=== PATIENT | male | born 1955 | race Caucasian/White ===

== ENCOUNTER 2024-11-13 12:04 | Emergency (ER) | payer MEDICARE, OTHER, SELFPAY ==
[2024-11-13] VITALS (12 sets, daily range): BP systolic 139–157; BP diastolic 73–110; PULSE 78–88; RESP 15–26; TEMP 36.4–36.7; O2SAT 93–100
--- OUTSIDE RECORDS SUMMARY | 2024-11-13 12:07 | XMS_ITS ---
Author Organization Unknown Medications Medication Instructions Effective Dates (start - stop) Status 3 ML insulin degludec 200 UN T/ML Pen Injector [Tresiba] - Completed insulin detemir 100 UNT/ML Injectable Solution [Levemir] - Complet ed 60 ACTUAT fluticasone propio marcelo 0.5 MG/ACTUAT / salmeterol 0.05 MG/ACTUAT Dry Powder Inhaler [Wixela] - Completed 60 ACTUAT fluticasone propio marcelo 0.5 MG/ACTUAT / salmeterol 0.05 MG/ACTUAT Dry Powder Inhaler [Wixela] - Completed 3 ML insulin aspart, human 1 00 UNT/ML Pen Injector [NovoLog] - Complet ed - - Compl eted atorvastatin 10 MG Oral Tablet 2023-08-18 T00:00:00Z - Completed 3 ML insulin degludec 200 UN T/ML Pen Injector [Tresiba] - Completed 60 ACTUAT fluticasone propio mareclo 0.5 MG/ACTUAT / salmeterol 0.05 MG/ACTUAT Dry Powder Inhaler [Wixela] - Completed 60 ACTUAT fluticasone propio marcelo 0.25 MG/ACTUAT / salmeterol 0.05 MG/ACTUAT Dry Powder Inhaler [Advair] - Completed - - Compl eted - - Compl eted insulin detemir 100 UNT/ML Injectable Solution [Levemir] - Complet ed - - Compl eted - - Compl eted 3 ML insulin degludec 200 UN T/ML Pen Injector [Tresiba] - Completed 3 ML insulin aspart, human 1 00 UNT/ML Pen Injector [NovoLog] - Complet ed atorvastatin 10 MG Oral Tablet 2023-05-18 T00:00:00Z - Completed 60 ACTUAT fluticasone propio marcelo 0.5 MG/ACTUAT / salmeterol 0.05 MG/ACTUAT Dry Powder Inhaler [Advair] - Completed atorvastatin 10 MG Oral Tablet 2024-03-25 T00:00:00Z - Completed - - Compl eted - - Compl eted - - Compl eted - - Compl eted - - Compl eted 3 ML insulin aspart, human 1 00 UNT/ML Pen Injector [NovoLog] - Complet ed 3 ML insulin aspart, human 1 00 UNT/ML Pen Injector [NovoLog] - Complet ed - - Compl eted Patient Care team information Name Category Status Period Participants - - Proposed period not known -
--- OUTSIDE RECORDS SUMMARY | 2024-11-13 12:07 | XMS_ITS | Clinical Summary ---
Author Organization [facility] Address [address] [place] [address] Phone Care Team Providers Care Clothing Man Name Role Phone Arminda Sutherland APRN, GLOBAL CREATIVE CHAIRMAN Unavailable Jorge L Botello MD Unavailable Allergies Active Allergy Reactions Criticality Noted Date Comments Promethazine Hcl Hallucinations 11/12/2010 Medications Accu-Chek Softclix Lancets XX MISCIndications: Diabetes 1.5, managed as type 1 (HCC) 1 Each by Does not apply route 3 times daily. 100 Each 3 3 Active budesonide-formo terol fumarate (SYMBICORT) 80-4.5 MCG/ACT IN AERO take 2 Puffs by inhalation 2 times daily. 3 Inhaler 3 4 Active Blood Glucose Monitoring Suppl (ONE TOUCH ULTRA MINI) W/DEVICE XX KIT by Does not apply route. 4 Active insulin lispro (HUMALOG KWIKPEN) 100 UNIT/ML SC SOLNIndications: Type II or unspecified type diabetes mellitus without mention of complication, uncontrolled 34 Units by Subcutaneous route 3 times daily (before meals). 90 day supply please. 105 mL 1 4 Active insulin glargine (LANTUS) 100 UNIT/ML SC SOLNIndications: Type II or unspecified type diabetes mellitus without mention of complication, uncontrolled 65 Units by Subcutaneous route daily. 60 mL 1 4 Active Glucose Blood (ONE TOUCH ULTRA TEST) STRPIndications: Type II or unspecified type diabetes mellitus without mention of complication, uncontrolled 1 Strip by In Vitro route 3 times daily. Use as directed 200 Each 3 4 Active INS SYRINGE/NEEDLE 1CC/28G (B-D INS SYR MICROFINE 1CC/28G) 28G X 1/2 1 ML XX MISCIndications: Type II or unspecified type diabetes mellitus without mention of complication, uncontrolled 1 Syringe by Subcutaneous route every evening. 100 Each 3 4 Active fluticasone (FLONASE) 50 MCG/ACT NA SUSPIndications: Nasal congestion 1-2 Sprays by Nasal route daily. Use in each nostril as directed. 3 Bottle 1 4 Active Active Problems Problem Noted Date Diagnosed Date Type 1 diabetes 11/14/2013 Diabetes mellitus 04/18/2013 Overview (02/21/2014): Diabetic Eye exam: 03/29/13 Dr. Audrey Awad recall 1 year. Last Foot Exam 11/14/13 Arminda Sutherland APN Frozen shoulder 11/19/2012 Resolved Problems Problem Noted Date Diagnosed Date Resolved Date Diabetes mellitus 12/09/2010 11/11/2011 Immunizations Immunization Administration Dates Next Due Covid-19, Mrna, Lnp-s, Pf, 3 0 Mcg/0.3 Ml Dose ([email or web address]) 12/18/2020,11/21/2020 Hepatitis B Vaccine 08/07/2007,03/05/2007,2006 Influenza Vaccine less than 3 yrs 08/07/2007 PNEUMONIA ADULT IM [id number] 02/05/2014 PUR FLU PRES FREE AGE 3+ FULL IM 06/10/2013 PUR HEP A ADULT IM 11/11/2011 TDAP Vaccine 02/01/2007 Family History Medical History Relation Name Comments Stroke Father Diabetes Mother High Cholesterol Mother Hypertension Mother Relation Name Status Comments Father Alive Mother Alive Social History Tobacco Use Types Packs/Day Years Used Date Smoking Tobacco: Never Smokeless Tobacco: Never Tobacco Cessation:Counseling Given: Yes Alcohol Use Standard Drinks/Week Comments No 0 (1 standard drink = 0.6 oz pur e alcohol) Sex and Gender Information Value Date Recorded Sex Assigned at Not on file Legal Sex Male 3:48 AM DINING CAR STEWARD Gender Identity Not on file Sexual Orientation Not on file Last Filed Vital Signs Vital Sign Reading Time Taken Comments Blood Pressure 132/82 02/05/2014 7:38 AM CDT Pulse 80 02/05/2014 7:38 AM CDT Temperature 36.3 C (97.4 F) 02/05/2014 7:38 AM CDT Respiratory Rate 18 02/05/2014 7:38 AM CDT Oxygen Saturation 99% 11/12/2010 10:46 AM DINING CAR STEWARD Inhaled Oxygen Concentration - - Weight 76.8 kg (169 lb 6.4 oz) 02/05/2014 7:38 A M CDT Height 172.7 cm (5' 8 ) 02/05/2014 7:38 AM CDT Body Mass Index 25.76 02/05/2014 7:38 AM CDT Plan of Treatment Health Maintenance Due Date Last Done Comments Diabetes: Foot Exam 1955 Hepatitis C Virus (HCV) Screening 1955 Colonoscopy 2000 Colorectal Cancer Screening 2000 Cologuard 2005 Immunochemical Fecal Occult Blood 2005 PSA Discussion 2010 Diabetes: Eye Exam 03/29/2014 03/29/2013 Diabetes: Hemoglobin A1c 08/08/2014 014, 10/10/2013, 06/11/2013, Additional history exists Diabetes: Nephropathy Screening 10/10/2014 10/10/2013, 02/01/2013, 02/01/2013, Additional history exists Pneumococcal Immunization (50+ years) (2 of 2 - PCV) 02/05/2015 02/05/2014 Respiratory Syncytial Virus (RSV) Immunization (Adult) (1 - Risk 60-74 years 1-dose series) 2015 Influenza Immunization (#1) 2024 06/10/2013, 1 10/07/2006 SARS-COV-2 Immunization ( season) 2024 01/03/2022, 07/02/2021, 12/18/2020, Additional history exists Hepatitis B Immunization Completed 007, 03/05/2007, 02/01/2007 Pneumococcal Immunization Combined Discontinued 02/05/2014 DTaP/Tdap/Td Immunization Discontinued 11/24/2017, 06/2007 Zoster Immunization Completed 07/28/2020, 0 Meningococcal Immunization (ACWY) Aged Out No longer eligible based on patient's age to complete this topic Rotavirus Immunization Aged Out No lo nger eligible based on patient's age to complete this topic Procedures Procedure Name Priority Date/Time Associated Diagnosis Comments HEMOGLOBIN A1C W/ ESTIMATED GLUCOSE Routine 02/05/2014 8:57 AM CDT Type 1 diabetes (HCC) CMP (COMPREHENSIVE METABOLIC PANEL) Routine 10/10/2013 8:12 AM DINING CAR STEWARD Type 1 diabetes mellitus (HCC) HM DILATED EYE EXAM Routine 03/29/2013 from Last 3 Months or Most Recently Relevant to Health Maintenance Results * (ABNORMAL) HEMOGLOBIN A1C W/ ESTIMATED GLUCOSE (02/05/2014 8:57 AM CDT) HGB-A1C 7.4(H) 4.0 - 6.0 % 02/05/2014 5:57 PM CDT [facility] Est Average Glucose 165.7 mg/dL 02/05/2014 5:57 PM CDT [facility] Blood specimen (specimen) Venipuncture / Unknown 02/05/2014 8:57 AM CDT 02/05/2014 9:00 AM CDT us Arminda Sutherland APRN, GLOBAL CREATIVE CHAIRMAN CHEMISTRY ORDERABLES Final Result Performing Organization Address City/State/[facility] Co de Phone Number [facility] [address] [place] [address] * (ABNORMAL) COMPREHENSIVE METABOLIC PANEL (CMP) (10/10/2013 8:12 AM DINING CAR STEWARD) SODIUM 142 137 - 145 mmol/L 10/10/2013 10:14 AM DINING CAR STEWARD [facility] POTASSIUM 4.8 3.5 - 5.1 mmol/L 10/10/2013 10:14 AM DINING CAR STEWARD [facility] CHLORIDE 102 98 - 107 mmol/L 10/10/2013 10:14 AM DINING CAR STEWARD [facility] CO2, VENOUS 27 22 - 30 mmol/L 10/10/2013 10:14 AM DINING CAR STEWARD [facility] ANION GAP 13.0 <18.0 mmol/L 10/10/2013 10:14 AM [facility] GLUCOSE 123(H) 70 - 99 mg/dL 10/10/2013 10:14 AM [facility] BUN 14 9 - 20 mg/dL 10/10/2013 10:14 AM [facility] CREATININE, BLOOD 0.78 0.70 - 1.30 mg/dL 10/10/2013 10:14 AM [facility] BUN/CREATININE RATIO 18 12 - 20 ratio 10/10/2013 10:14 AM [facility] TOTAL PROTEIN 7.2 6.3 - 8.2 g/dL 10/10/2013 10:14 AM [facility] ALBUMIN 4.3 3.5 - 5.0 g/dL 10/10/2013 10:14 AM [facility] A/G RATIO 1.5 1.0 - 2.2 10/10/2013 10:14 AM [facility] CALCIUM 9.7 8.4 - 10.2 mg/dL 10/10/2013 10:14 AM [facility] T BILI 0.6 0.2 - 1.3 mg/dL 10/10/2013 10:14 AM [facility] SGOT (AST) 19 17 - 59 U/L 10/10/2013 10:14 AM [facility] SGPT (ALT) 26 21 - 72 U/L 10/10/2013 10:14 AM [facility] ALKALINE PHOSPHATASE 95 38 - 126 U/L 10/10/2013 10:14 AM [facility] GFR, EST. NONAFRICAN >60 >=60 10/10/2013 10:14 AM [facility] GFR, EST. >60 >=60 10/10/2013 10:14 AM [facility] Comment: Creatinine Clearance is the preferred criteria for selecting drug dose adjustments in renally impaired patients. The GFR is provided as additional pertinent clinical information. GFR is reported in mL/min/1.73 sq m. Blood specimen (specimen) Venipuncture / Unknown 10/10/2013 8:12 AM DINING CAR STEWARD 10/10/2013 8:12 AM DINING CAR STEWARD us Naga Elliott MD CHEMISTRY ORDERABLES Final Re sult [facility] [address] [place] [address] * HM DILATED EYE EXAM (03/29/2013) us Isela Alarcon MD PROCEDURE/MINOR SURGICAL O RDERABLES Final Result from Last 3 Months or Most Recently Relevant to Health Maintenance Insurance [facility] Care Teams Clothing Man Relationship Specialty Start Date End Date Arminda Sutherland, HEDGE FUND PRINCIPAL, GLOBAL CREATIVE CHAIRMAN [address], [place] [id number] Nurse Practitioner Endocrinology 07/19/13 Jorge L Botello MD [address] [place] [address] Consulting Physician Endocrinology 07/19/13
--- OUTSIDE RECORDS SUMMARY | 2024-11-13 12:07 | XMS_ITS | Continuity of Care Document ---
Author Organization [facility], [facility] Address [address] [place] [address] Phone Care Team Providers Care Bee Farmer Name Role Phone Gerson Awad MD Unavailable Unavailable Allergies, Adverse Reactions, Alerts Substance Reaction Status Criticality No Known Drug Allergies Active No I nformation Medications Medication Instructions Dosage Effective Dates (start - stop) Status Comments HUMALOG (unknown strength) Not Available - Active LANTUS (unknown strength) Not Available - Active Procedures Procedure Date EYE EXAM ESTABLISHED PATIENT, MEDICAL Ju REFRACTION UPDATE EYE EXAM, NEW PATIENT MEDICAL 0 REFRACTION UPDATE Advance Directives Directive Yes / No Effective Date File Name No Information Encounters Encounter Description Practice Location Reason(s) For Visit Diagnoses Date Provider Providers Copied on Encounter [facility], [facility], [address] [place] [address], [id number] , [place] tel: [phone] [facility] Diabetes Examination (chief complaint)no problems with V/A and no complaints (chief complaint) Diabetes Mellitus Type 2, UncomplicatedSenile nuclear sclerosis 3 Ritesh [address]. [address] [place] [address], [id number] , [place]. tel: [phone] Other Provider: Naga Elliott, [address] [facility] [address], [place], [address]. tel:[phone] [facility], [facility], [address] [place] [address], [id number] , tel: [phone] [facility] No Information 201 [address] Ritesh Nieto. [address] [place], [place], [id number] , . tel: [phone] Family History Family Member Type Diagnosis Age At Onset Problem (finding) No Family history of Re spiratory Disease Father Problem (finding) cataract Problem (finding) No Family history of Re tinal Disorders Mother Problem (finding) diabetes melli tus in first degree relative Problem (finding) No Family history of As thma Mother Problem (finding) HBP Grandparents Problem (finding) Heart Disease Problem (finding) No Family history of Gl aucoma Grandparents Problem (finding) stroke Mother Problem (finding) Arthritis Problem (finding) No Family history of St rabismus Problem (finding) No Family hist ory of Macular Degeneration Payers Payer name Insurance type Covered democrat ID Authorfady cleosanford(s) [facility]ly [facility], [facility] 7141 [id number] Social History Type Description Quantity Date Captured Comments Alcohol Use Details Unknown Caffeine Use Details Unknown Tobacco Use Status No Information Smoking Status Never smoker Non-Smoking Tobacco Use Details : No Details Available : No Details Available Sex Male Chief Complaint And Reason For Visit From encounter dated '03/29/2013 15:15'. Diabetes Examination (chief complaint) no problems with V/A and no complaints (chief complaint) Reason For Referral Reason For Referral No Information History Of Present Illness Encounter Date Complaint History Of Prese nt Illness No Information Functional Status Date Functional Assessmen t No Information Instructions Date Instruction Additional Infor angelia - Return in 1 year with RML for Ref T & D. Related to Diabetic Monitor Diabetic Monitor OU. Condition: will continue to monitor. Cataract OU. Condition: established, worsening. - No signs of diabetes in the eyes. Cataracts are progressing OU but can correct with gls rx update. Eventually will need sg, but not until v/a is affected. Return in one year for f/u, TCI if problems. Related to Diabetic Monitor Assessments Type Assessment Date No Information Patient Care Teams Name Effective Dates (start - stop) Status Members No Information
[2024-11-13 12:11] LABS: Glucose Point of Care 103 mg/dl (65-105)
[2024-11-13 12:28] LABS: Basophils Absolute Auto 0.1 K/mm3 (0.0-0.1); Eosinophils Absolute Auto 0.1 K/mm3 (0-0.3); Eosinophils Percent Auto 1.4 % (0-4.4); Hematocrit 50.6 % (42.0-52.0); Immature Granulocyte Absolute 0.11 K/mm3 (0.00-0.031); Immature Granulocyte Percent A 1.1 % (0-0.5); Lymphocytes Absolute Auto 1.27 K/mm3 (0.9-3.2); Lymphocytes Percent Auto 12.7 % (18.3-44.2); Mean Corpuscular HGB Conc 33.6 g/dl (32-36); Mean Corpuscular Hemoglobin 30.6 pg (26-34); Mean Corpuscular Volume 91.2 fl (80-100); Mean Platelet Volume 9.2 fl (7.4-10.4); Monocytes Absolute Auto 0.8 K/mm3 (0.1-0.6); Monocytes Percent Auto 8.3 % (2.6-8.5); Neutrophils Absolute Auto 7.6 K/mm3 (1.3-6.7); Neutrophils Percent Auto 75.5 % (45.5-73.1); Platelet Count Result 257 k/mm3 (150-375); Red Blood Count 5.55 M/mm3 (4.6-6.20); Red Cell Distribution Width 12.6 % (11.5-14.5)
[2024-11-13 12:41] LABS: Alanine Aminotransferase 30 U/L (6-50); Albumin Level 4.6 g/dL (3.5-5.1); Alkaline Phosphatase 92 U/L (38-126); Anion Gap 11 mmol/L (4-12); Aspartate Amino Transferase 31 U/L (17-59); Bilirubin,Total 1.1 mg/dL (0.2-1.3); Blood Urea Nitrogen 12 mg/dL (9-20); Calcium 9.5 mg/dL (8.4-10.2); Carbon Dioxide 27 mmol/L (22-30); Chloride 100 mmol/L (98-107); Estimated CRCL calculation 69 ml/min; Estimated Glomerular Filt Rate > 60; Glucose 103 mg/dL (65-110); Lipase 53 U/L (23-300); Potassium 3.8 mmol/L (3.4-5.0); Sodium 138 mmol/L (137-145)
[2024-11-13] MEDS: ONDANSETRON INJ 4 MG/2 ML VIAL IV PUSH (12:58)
[2024-11-13] MEDS: SODIUM CHLORIDE 0.9% IV 1,000 ML 999 ML IV CONT (12:58)
--- OUTSIDE RECORDS SUMMARY | 2024-11-13 12:58 | XMS_ITS | Continuity of Care Document ---
Author Organization [facility], [place] Address [address] [place] [address] Phone Care Team Providers Care Farm Mortgage Agent Name Role Phone Gerson Awad MD Unavailable Unavailable Allergies, Adverse Reactions, Alerts Substance Reaction Status Criticality No Known Drug Allergies Active No I nformation Medications Medication Instructions Dosage Effective Dates (start - stop) Status Comments LANTUS (unknown strength) Not Available - Active HUMALOG (unknown strength) Not Available - Active Procedures Procedure Date EYE EXAM ESTABLISHED PATIENT, MEDICAL Ju REFRACTION UPDATE EYE EXAM, NEW PATIENT MEDICAL 0 REFRACTION UPDATE Advance Directives Directive Yes / No Effective Date File Name No Information Encounters Encounter Description Practice Location Reason(s) For Visit Diagnoses Date Provider Providers Copied on Encounter [facility], [facility], [address] [place] [address], [id number] , [place] tel: [phone] [facility] Diabetes Examination (chief complaint)no problems with V/A and no complaints (chief complaint) Diabetes Mellitus Type 2, UncomplicatedSenile nuclear sclerosis 3 Ritesh [address]o. [address] [place] [address], [id number] , [place]. tel: [phone] Other Provider: Naga Elliott, [address] [facility] [address], [place], [address]. tel:[phone] [facility] Eye [facility], [facility], [address] [place] [address], [id number] , tel: [phone] [facility] No Information 201 0 Ritesh Nieto. [address] [place], [place], [id number] , . tel: [phone] Family History Family Member Type Diagnosis Age At Onset Problem (finding) No Family hist ory of Macular Degeneration Problem (finding) No Family history of St rabismus Mother Problem (finding) Arthritis Grandparents Problem (finding) stroke Problem (finding) No Family history of Gl aucoma Grandparents Problem (finding) Heart Disease Mother Problem (finding) HBP Problem (finding) No Family history of As thma Mother Problem (finding) diabetes melli tus in first degree relative Problem (finding) No Family history of Re tinal Disorders Father Problem (finding) cataract Problem (finding) No Family history of Re spiratory Disease Payers Payer name Insurance type Covered libertarian ID Authoropal gallosanford(s) [facility] 7141 [id number] Social History Type Description Quantity Date Captured [...] No Information Instructions Date Instruction Additional Infor agnelia - Return in 1 year with RML [...]
--- OUTSIDE RECORDS SUMMARY | 2024-11-13 12:58 | XMS_ITS | Clinical Summary ---
Author Organization [facility] Address [address] [place] [address] Phone Care Team Providers Care Home Energy Consultant Name Role Phone Arminda Sutherland APRN, BUSINESS ENTERPRISE OFFICER Unavailable [phone] Jorge L Botello MD Unavailable Allergies Active [...] Lnp-s, Pf, 3 0 Mcg/0.3 Ml Dose (In[employer]) 12/18/2020,11/21/2020 Hepatitis B Vaccine 08/07/2007,03/05/2007,2006 Influenza Vaccine [...] on file Legal Sex Male 3:48 AM GIFT MANAGER Gender Identity Not on file Sexual Orientation Not on file Last Filed Vital Signs Vital Sign Reading Time Taken Comments Blood Pressure 132/82 02/05/2014 7:38 AM CDT Pulse 80 02/05/2014 7:38 AM CDT Temperature 36.3 C (97.4 F) 02/05/2014 7:38 AM CDT Respiratory Rate 18 02/05/2014 7:38 AM CDT Oxygen Saturation 99% 11/12/2010 10:46 AM GIFT MANAGER Inhaled Oxygen Concentration - - Weight 76.8 [...] (COMPREHENSIVE METABOLIC PANEL) Routine 10/10/2013 8:12 AM GIFT MANAGER Type 1 diabetes mellitus (HCC) HM DILATED EYE EXAM Routine 03/29/2013 from Last 3 Months or Most Recently Relevant to Health Maintenance Results * (ABNORMAL) HEMOGLOBIN A1C W/ ESTIMATED GLUCOSE (02/05/2014 8:57 AM CDT) HGB-A1C 7.4(H) 4.0 - 6.0 % 02/05/2014 5:57 PM CDT [facility] Est Average Glucose 165.7 mg/dL 02/05/2014 5:57 PM CDT [facility] Blood specimen (specimen) Venipuncture / Unknown 02/05/2014 8:57 AM CDT 02/05/2014 9:00 AM CDT us Arminda Sutherland APRN, BUSINESS ENTERPRISE OFFICER CHEMISTRY ORDERABLES Final Result Performing Organization Address City/State/[facility] Co de Phone Number [facility] [address] [place] [address] * (ABNORMAL) COMPREHENSIVE METABOLIC PANEL (CMP) (10/10/2013 8:12 AM GIFT MANAGER) SODIUM 142 137 - 145 mmol/L 10/10/2013 10:14 AM GIFT MANAGER [facility] POTASSIUM 4.8 3.5 - 5.1 mmol/L 10/10/2013 10:14 AM GIFT MANAGER [facility] CHLORIDE 102 98 - 107 mmol/L 10/10/2013 10:14 AM GIFT MANAGER [facility] CO2, VENOUS 27 22 - 30 mmol/L 10/10/2013 10:14 AM GIFT MANAGER [facility] ANION GAP 13.0 <18.0 mmol/L 10/10/2013 10:14 AM [facility] GLUCOSE 123(H) 70 - 99 mg/dL 10/10/2013 10:14 AM [facility] BUN 14 9 - 20 mg/dL 10/10/2013 10:14 AM [facility] CREATININE, BLOOD 0.78 0.70 - 1.30 mg/dL 10/10/2013 10:14 AM [facility] BUN/CREATININE RATIO 18 12 - 20 ratio 10/10/2013 10:14 AM [facility] TOTAL PROTEIN 7.2 6.3 - 8.2 g/dL 10/10/2013 10:14 AM [facility] ALBUMIN 4.3 3.5 - 5.0 g/dL 10/10/2013 10:14 AM [facility] A/G RATIO 1.5 1.0 - 2.2 10/10/2013 10:14 AM [facility] CALCIUM 9.7 8.4 - 10.2 mg/dL 10/10/2013 10:14 AM [facility] T BILI 0.6 0.2 - 1.3 mg/dL 10/10/2013 10:14 AM [facility] SGOT (AST) 19 17 - 59 U/L 10/10/2013 10:14 AM [facility] SGPT (ALT) 26 21 - 72 U/L 10/10/2013 10:14 AM [facility] ALKALINE PHOSPHATASE 95 38 - 126 U/L 10/10/2013 10:14 AM [facility] GFR, EST. NONAFRICAN >60 >=60 10/10/2013 10:14 AM [facility] GFR, EST. >60 >=60 10/10/2013 10:14 AM [facility] Comment: Creatinine Clearance is the preferred criteria for selecting drug dose adjustments in renally impaired patients. The GFR is provided as additional pertinent clinical information. GFR is reported in mL/min/1.73 sq m. Blood specimen (specimen) Venipuncture / Unknown 10/10/2013 8:12 AM GIFT MANAGER 10/10/2013 8:12 AM GIFT MANAGER us Naga Elliott MD CHEMISTRY ORDERABLES Final Re sult [facility] [address] [place] [address] * HM DILATED EYE EXAM (03/29/2013) us Islea Alarcon MD PROCEDURE/MINOR SURGICAL O RDERABLES Final Result from Last 3 Months or Most Recently Relevant to Health Maintenance Insurance [facility] Care Teams Home Energy Consultant Relationship Specialty Start Date End Date Arminda Sutherland, NEEDLE LOOM SETTER, BUSINESS ENTERPRISE OFFICER [address] [place], [place] [address] Nurse Practitioner Endocrinology 07/19/13 Jorge L Botello MD [address] [place] [address] Consulting Physician Endocrinology 07/19/13
--- OUTSIDE RECORDS SUMMARY | 2024-11-13 12:58 | XMS_ITS ---
[...] [Tresiba] - Completed 60 ACTUAT fluticasone propio marcelo [...]
[2024-11-13 13:45] LABS: Influenza A QL RT-PCR Positive (Negative); Influenza B QL RT-PCR Negative (Negative); RSV RNA, RT-PCR Negative (Negative); SARS-CoV-2 RNA PCR Negative (Negative)
[2024-11-13 14:04] LABS: Add Urine Microscopic? YES; Appearance Urine Clear (Clear); Bacteria Urine None Seen /hpf; Bilirubin Urine Negative (Negative); Blood Urine Negative (Negative); Color Urine Yellow (Yellow); Glucose Urine UA Negative (Negative); Ketones Urine Negative (Negative); Leukocyte Esterase Ur Negative LEU/UL (Negative); Nitrate Urine Negative (Negative); Non Pathogenic Casts 0-2; Protein Urine Trace mg/dL (Negative); RBC Urine 0-2 /hpf (0-2); Specific Grav Ur 1.017 (1.001-1.035); Squamous Epithelial Cell Urine None Seen /hpf (Few); WBC Urine 0-5 /hpf (0-3); pH Urine 8.5 (5.0-9.0)
--- NOTE | 2024-11-13 14:31 | ED.NAVMDI ---
HPI - Nausea/Vomiting/Diarrhea General Chief complaint: Nausea/Vomiting/Diarrhea Stated complaint: I've got the flu real bad Time Seen by Provider: 11/13/24 12:42 History of Present Illness HPI Narrative: Patient is a 69-year-old male who presents ER with nausea and vomiting. Began over last 12 hours. She is diabetic and is concerned that he may develop DKA. Blood sugars have been running normal. No known sick contacts. He does have body aches and fatigue. Related Data Home Medications ?Medication ?Instructions ?Recorded ?Confirmed ?Last Taken ?Type phenylephrine HCl 10 mg tablet 10 mg PO BID PRN 12/05/19 10/17/24 Unknown History (Suphedrine PE) blood-glucose sensor (Dexcom G6 06/17/24 10/17/24 Unknown History Sensor device) Allergies Allergy/AdvReac Type Severity Reaction Status Date / Time promethazine AdvReac Unknown hallucinati Verified 11/13/24 12:55 ons Review of Systems Review of Systems: All systems reviewed & are unremarkable except as noted in HPI and below Constitutional: Constitutional: Reports no additional constitutional complaints ENT: Reports system reviewed and no additional complaints, except as documented Cardiovascular: Cardiovascular: Reports no additional cardiovascular complaints Respiratory: Respiratory: Reports no additional respiratory complaints Gastrointestinal: Gastrointestinal: Reports no additional gastrointestinal complaints [facility] Past Medical History Medical History (Updated 11/13/24 @ 14:35 by Corby Espinal MD) Type 1 diabetes mellitus with diabetic neuropathy, unspecified Mixed hyperlipidemia Prehypertension Asthma Surgical History Surgical History (Updated 11/13/24 @ 14:32 by Corby Espinal MD) No pertinent past surgical history Family History Family History Mother Patient's mother is , Onset Age: 86 Father Patient's father is , Onset Age: 84 Other Family history of cardiovascular disease Family history of elevated blood lipids Social History Social History Smoking status: Never smoker Second hand tobacco smoke exposure: No Alcohol intake: never Substance use: never Gender identity (if verbalized by the patient): Male Exam Narrative: GENERAL: Fatigued-appearing, well-nourished, and in no acute distress. HEAD: Normocephalic, atraumatic. ENT: Mucous membranes moist. CHEST: Clear to auscultation. No respiratory distress. HEART: Regular rate and rhythm. Normal peripheral pulses. ABDOMEN: Soft, nontender, nondistended. EXTREMITIES: Normal range of motion. No edema. SKIN: Warm, dry, no rash. NEURO: Alert and oriented x3. PSYCH: Normal mood and affect. Course Course Emergency Course: Hydrated, given antiemetics. Influenza positive. Labs otherwise unremarkable. Appropriate for discharge home. Vital Signs Vital signs: Vital Signs Temperature 97.5 F L 11/13/24 12:07 Pulse Rate 87 11/13/24 12:07 Respiratory Rate 16 11/13/24 12:07 Blood Pressure 157/86 H 11/13/24 12:07 Pulse Oximetry 98 11/13/24 12:07 Temperature 98.1 F 11/13/24 12:31 Pulse Rate 78 11/13/24 12:31 Respiratory Rate 26 H 11/13/24 12:31 Blood Pressure 141/83 H 11/13/24 12:31 Pulse Oximetry 98 11/13/24 12:31 MDM - Nausea/Vomiting/Diarrhea Lab Data 11/13/24 12:22 11/13/24 12:22 Labs: Lab Results 11/13/24 11/13/24 11/13/24 Range/Units 12:09 12:22 13:04 WBC 10.0 (4.5-10.0) K/mm3 RBC 5.55 (4.6-6.20) M/mm3 Hgb 17.0 (14.0-18.0) g/dL Hct 50.6 (42.0-52.0) % MCV 91.2 (80-100) fl MCH 30.6 (26-34) pg MCHC 33.6 (32-36) g/dl RDW 12.6 (11.5-14.5) % Plt Count 257 (150-375) k/mm3 MPV 9.2 (7.4-10.4) fl Immature Gran % (Auto) 1.1 H (0-0.5) % Neut % (Auto) 75.5 H (45.5-73.1) % Lymph % (Auto) 12.7 L (18.3-44.2) % [place] % (Auto) 8.3 (2.6-8.5) % Eos % (Auto) 1.4 (0-4.4) % Baso % (Auto) 1.0 (0.2-1.2) % Lymph # (Auto) 1.27 (0.9-3.2) K/mm3 [place] # (Auto) 0.8 H (0.1-0.6) K/mm3 Eos # (Auto) 0.1 (0-0.3) K/mm3 Baso # (Auto) 0.1 (0.0-0.1) K/mm3 Abs Immat Gran (auto) 0.11 H (0.00-0.031) K/mm3 Absolute Neuts (auto) 7.6 H (1.3-6.7) K/mm3 Absolute Nucleated RBC 0.000 (0.0-0.012) K/mm3 Nucleated RBC % 0.0 (0.0-0.2) % Sodium 138 (137-145) mmol/L Potassium 3.8 (3.4-5.0) mmol/L Chloride 100 (98-107) mmol/L Carbon Dioxide 27 (22-30) mmol/L Anion Gap 11 (4-12) mmol/L BUN 12 (9-20) mg/dL Creatinine 0.88 (0.7-1.3) mg/dL Estim Creat Clear Calc 69 ml/min Estimated GFR > 60 (59 - ) Glucose 103 (65-110) mg/dL POC Capillary Glucose 103 (65-105) mg/dl Calcium 9.5 (8.4-10.2) mg/dL Total Bilirubin 1.1 (0.2-1.3) mg/dL AST 31 (17-59) U/L ALT 30 (6-50) U/L Alkaline Phosphatase 92 (38-126) U/L Total Protein 8.0 (6.3-8.2) g/dL Albumin 4.6 (3.5-5.1) g/dL Lipase 53 (23-300) U/L Urine Color Urine Appearance Urine pH Ur Specific Noti Urine Protein Urine Glucose (UA) Urine Ketones Ur Blood (Man) Urine Nitrate Urine Bilirubin Urine Urobilinogen Leukocyte Esterase Rfl Influenza A (RT-PCR) Positive A (Negative) Influenza B (RT-PCR) Negative (Negative) RSV (RT-PCR) Negative (Negative) SARS-CoV-2 RNA (RT-PCR) Negative (Negative) 11/13/24 Range/Units 13:50 WBC (4.5-10.0) K/mm3 RBC (4.6-6.20) M/mm3 Hgb (14.0-18.0) g/dL Hct (42.0-52.0) % MCV (80-100) fl MCH (26-34) pg MCHC (32-36) g/dl RDW (11.5-14.5) % Plt Count (150-375) k/mm3 MPV (7.4-10.4) fl Immature Gran % (Auto) (0-0.5) % Neut % (Auto) (45.5-73.1) % Lymph % (Auto) (18.3-44.2) % [place] % (Auto) (2.6-8.5) % Eos % (Auto) (0-4.4) % Baso % (Auto) (0.2-1.2) % Lymph # (Auto) (0.9-3.2) K/mm3 [place] # (Auto) (0.1-0.6) K/mm3 Eos # (Auto) (0-0.3) K/mm3 Baso # (Auto) (0.0-0.1) K/mm3 Abs Immat Gran (auto) (0.00-0.031) K/mm3 Absolute Neuts (auto) (1.3-6.7) K/mm3 Absolute Nucleated RBC (0.0-0.012) K/mm3 Nucleated RBC % (0.0-0.2) % Sodium (137-145) mmol/L Potassium (3.4-5.0) mmol/L Chloride (98-107) mmol/L Carbon Dioxide (22-30) mmol/L Anion Gap (4-12) mmol/L BUN (9-20) mg/dL Creatinine (0.7-1.3) mg/dL Estim Creat Clear Calc ml/min Estimated GFR (59 - ) Glucose (65-110) mg/dL POC Capillary Glucose (65-105) mg/dl Calcium (8.4-10.2) mg/dL Total Bilirubin (0.2-1.3) mg/dL AST (17-59) U/L ALT (6-50) U/L Alkaline Phosphatase (38-126) U/L Total Protein (6.3-8.2) g/dL Albumin (3.5-5.1) g/dL Lipase (23-300) U/L Urine Color Pending Urine Appearance Pending Urine pH Pending Ur Specific Noti Pending Urine Protein Pending Urine Glucose (UA) Pending Urine Ketones Pending Ur Blood (Man) Pending Urine Nitrate Pending Urine Bilirubin Pending Urine Urobilinogen Pending Leukocyte Esterase Rfl Pending Influenza A (RT-PCR) (Negative) Influenza B (RT-PCR) (Negative) RSV (RT-PCR) (Negative) SARS-CoV-2 RNA (RT-PCR) (Negative) Discharge Plan Discharge Clinical Impression: Influenza A Patient Disposition: Home, Self-Care Condition: Stable Instructions: Influenza (ED) Additional Instructions: Return ER if he cannot keep down food/water/medication, you lose consciousness, or you have additional concerns. Patient Language: Portuguese Prescriptions: New oseltamivir 75 mg capsule 75 mg PO BID Qty: 10 0RF ondansetron 4 mg tablet,disintegrating 4 mg PO Q6H PRN (Reason: nausea and vomiting) Qty: 10 0RF No Action (DME) Dexcom G6 Sensor Device See Rx Instructions .Route Rx Instructions: As directed Suphedrine PE 10 mg tablet 10 mg PO BID PRN (DME) insulin syringe-needle U-100 [BD Insulin Syringe Ultra-Fine] 1 mL 30 gauge x 1/2 syringe See Rx Instructions .ROUTE .COMPLEX Qty: 200 3RF Dose Instruction: USE DIRECTED Rx Instructions: USE DIRECTED triamcinolone acetonide 0.1 % cream 1 applic topical QID Qty: 80 0RF (DME) insulin syringe-needle U-100 [BD Insulin Syringe] 1 mL 28 gauge x 1/2 syringe See Rx Instructions .ROUTE .MEDSUPPLY Qty: 100 3RF Rx Instructions: Use to inject insulin subq 2 times daily fluticasone propion-salmeterol [Wixela Inhub] 250-50 mcg/dose blister with device 1 inh inhalation BID Qty: 60 0RF (DME) lancets [Accu-Chek Softclix Lancets] Misc See Rx Instructions .ROUTE .MEDSUPPLY Qty: 400 3RF Rx Instructions: use to test blood sugar 4 times daily and as directed fluticasone propion-salmeterol [Advair Diskus] 500-50 mcg/dose blister with device 1 inh inhalation Q12H Qty: 180 3RF (DME) Accu-Chek Guide test strips Strip See Rx Instructions .Route Qty: 400 3RF Rx Instructions: As directed insulin degludec [Tresiba FlexTouch U-200] 200 unit/mL (3 mL) insulin pen 100 unit subcut DAILY Qty: 45 3RF (DME) pen needle, diabetic [BD Ultra-Fine Orig Pen Needle] 29 gauge x 1/2 needle See Rx Instructions .ROUTE .MEDSUPPLY Qty: 360 3RF Rx Instructions: Use with Insulin (DME) FreeStyle Cristina 2 [place] Misc See Rx Instructions .Route Qty: 1 0RF Rx Instructions: As directed (DME) FreeStyle Cristina 2 [place] Misc See Rx Instructions .ROUTE .MEDSUPPLY Qty: 1 0RF Rx Instructions: As directed (DME) FreeStyle Cristina 2 Sensor Kit See Rx Instructions .ROUTE .MEDSUPPLY Qty: 13 3RF Rx Instructions: As directed (DME) Dexcom G7 Sensor Device See Rx Instructions .Route Qty: 9 3RF Rx Instructions: As directed insulin aspart U-100 [Novolog FlexPen U-100 Insulin] 100 unit/mL (3 mL) insulin pen See Rx Instructions .ROUTE .COMPLEX Qty: 90 3RF Dose Instruction: INJECT 35 UNITS (0.35ML) SUBCUTANEOUSLY 3 TIMES A DAY Rx Instructions: INJECT 35 UNITS (0.35ML) SUBCUTANEOUSLY 3 TIMES A DAY Follow-up/Referrals: Naga Barnett MD [Primary Care Provider] - 1 Week
== END 2024-11-13 15:48 | disposition home or self-care (01) ==
PROVIDERS: Emergency Provider Emergency Medicine; PCP Family Medicine
DX: J10.1 Influenza due to other identified influenza virus with other respiratory manifestations (principal); Z20.822 Contact with and (suspected) exposure to COVID-19; E10.40 Type 1 diabetes mellitus with diabetic neuropathy, unspecified; E78.2 Mixed hyperlipidemia; J45.909 Unspecified asthma, uncomplicated; Z79.4 Long term (current) use of insulin; Z79.51 Long term (current) use of inhaled steroids
CPT/HCPCS: 36415; 80053; 81001; 82948; 83690; 85025; 87637; 96361; 96374; 99284; J2405; J7030